=== PATIENT | female | born 1995 | race Caucasian/White ===

== ENCOUNTER → 2023-10-21 08:44 | Outpatient (CLI) | payer OTHER, SELFPAY ==
[2023-10-21 09:21] LABS: Add Manual Diff / Slide Review NO; Basophils Absolute Auto 100 /uL (0-100); Basophils Percent Auto 0.6 % (0-2); Eosinophils Absolute Auto 100 /uL (0-450); Eosinophils Percent Auto 1.1 % (2-4); Hematocrit 41.3 % (36-46); Lymphocytes Absolute Auto 2300 /uL (1100-4500); Lymphocytes Percent Auto 24.5 % (25-40); Mean Corpuscular HGB Conc 33.8 % (30-36); Mean Corpuscular Hemoglobin 30.1 PG (26-34); Monocytes Absolute Auto 500 /uL (0-900); Monocytes Percent Auto 5.6 % (3-14); Neutrophils Absolute Auto 6500 /uL (1500-7000); Neutrophils Percent Auto 68.2 % (50-75); Platelet Count 286 X10^3/uL (150-400); Red Blood Cell Count 4.64 X10^6/uL (4.0-5.2); Red Cell Distribution Width 13.1 % (11.6-14.8); White Blood Cell Count 9.5 X10^3/uL (4.5-11.0)
[2023-10-21 09:29] LABS: Hemoglobin A1C% w Est Avg Glu 5.6 % (4.0-6.0)
[2023-10-21 09:38] LABS: Alanine Aminotransferase 62 IU/L (<35); Albumin 4.5 g/dL (3.5-5.0); Albumin Globulin Ratio 1.2 (1.0-2.8); Alkaline Phosphatase 85 U/L (38-126); Aspartate Aminotransferase 39 IU/L (14-36); BUN Creatinine Ratio 18.3 (6-22); Bilirubin Total 0.6 mg/dL (0.2-1.3); Blood Urea Nitrogen 13 mg/dL (7-17); Calcium 9.7 mg/dL (8.4-10.2); Carbon Dioxide 27 mmol/L (22-32); Chloride 102 mmol/L (98-107); Estimated Glomerular Filt Rate > 60 mL/min (>60); Globulin 3.8 g/dL (1.7-4.1); Glucose 102 mg/dL (70-100); HEMOLYSIS < 15 (0-50); Potassium 4.7 mmol/L (3.4-5.1); Sodium 136 mmol/L (137-145); Total Protein 8.3 g/dL (6.3-8.2)
[2023-10-21 09:56] LABS: Vitamin D 25 Hydroxy (D3) 28.1 ng/mL (30.0-100.0)
[2023-10-21 10:41] LABS: Free T4, Direct Thyroxine 0.84 ng/dL (0.78-2.19)
== END ==
PROVIDERS: PCP Student in an Organized Health Care Education/Training Program; Referring Provider Student in an Organized Health Care Education/Training Program; Visit Provider Student in an Organized Health Care Education/Training Program
DX: Z13.1 Encounter for screening for diabetes mellitus (principal); E03.9 Hypothyroidism, unspecified
CPT/HCPCS: 36415; 80053; 82306; 83036; 84439; 84443; 85025

== ENCOUNTER → 2024-05-21 11:13 | Outpatient (CLI) | payer OTHER, SELFPAY ==
[2024-05-21 12:05] LABS: Hemoglobin A1C% w Est Avg Glu 5.4 % (4.0-6.0)
[2024-05-21 12:26] LABS: Vitamin D 25 Hydroxy (D3) 27.3 ng/mL (30.0-100.0)
== END ==
PROVIDERS: PCP Student in an Organized Health Care Education/Training Program; Referring Provider Student in an Organized Health Care Education/Training Program; Visit Provider Student in an Organized Health Care Education/Training Program
DX: E28.2 Polycystic ovarian syndrome (principal); E03.9 Hypothyroidism, unspecified; L64.9 Androgenic alopecia, unspecified
CPT/HCPCS: 36415; 82306; 83036; 84443

== ENCOUNTER → 2024-05-27 16:20 | Outpatient (CLI) | payer OTHER, SELFPAY ==
[2024-05-27 17:25] LABS: Add Manual Diff / Slide Review NO; Basophils Absolute Auto 0 /uL (0-100); Basophils Percent Auto 0.3 % (0-2); Eosinophils Absolute Auto 100 /uL (0-450); Eosinophils Percent Auto 1.1 % (2-4); Hematocrit 40.3 % (36-46); Hemoglobin 13.6 g/dL (12.0-16.0); Lymphocytes Absolute Auto 2900 /uL (1100-4500); Lymphocytes Percent Auto 30.5 % (25-40); Mean Corpuscular HGB Conc 33.8 % (30-36); Mean Corpuscular Hemoglobin 30.3 PG (26-34); Mean Corpuscular Volume 89.6 fL (80-100); Monocytes Absolute Auto 700 /uL (0-900); Monocytes Percent Auto 7.2 % (3-14); Neutrophils Absolute Auto 5800 /uL (1500-7000); Neutrophils Percent Auto 60.9 % (50-75); Platelet Count 328 X10^3/uL (150-400); Red Cell Distribution Width 13.2 % (11.6-14.8); White Blood Cell Count 9.5 X10^3/uL (4.5-11.0)
[2024-05-27 17:33] LABS: Appearance Urine UA CLEAR; Bilirubin Urine UA NEGATIVE (NEGATIVE); Color Urine UA YELLOW; Glucose Urine UA NEGATIVE (Negative); Ketones Urine UA NEGATIVE (NEGATIVE); Leukocyte Esterase Urine UA TRACE (NEGATIVE); Nitrite Urine UA NEGATIVE (Negative); Occult Blood Urine UA NEGATIVE (Negative); Protein Urine UA NEGATIVE (Negative); Specific Gravity Urine UA 1.015 (1.000-1.035); Urobilinogen Urine UA 0.2 E.U./dL (0.2)
[2024-05-27 17:41] LABS: Bacteria Urine Occasional (0-1); Culture Indicated Urine Cult Not Indicated; RBC Urine 0-1/HPF (0-5/HPF); Squamous Epithelial Cell Urine 0-1 /HPF (0-5/HPF); Urine Volume 10mL (spun); WBC Urine 0-1/HPF (0-5/HPF)
[2024-05-27 17:51] LABS: HEMOLYSIS < 15 (0-50); Iron 79 ug/dL (37-170)
[2024-05-27 17:55] LABS: Alanine Aminotransferase 73 IU/L (<35); Albumin 4.3 g/dL (3.5-5.0); Albumin Globulin Ratio 1.2 (1.0-2.8); Alkaline Phosphatase 89 U/L (38-126); Aspartate Aminotransferase 41 IU/L (14-36); BUN Creatinine Ratio 14.5 (6-22); Bilirubin Total 0.5 mg/dL (0.2-1.3); Blood Urea Nitrogen 11 mg/dL (7-17); Calcium 9.1 mg/dL (8.4-10.2); Carbon Dioxide 27 mmol/L (22-32); Chloride 101 mmol/L (98-107); Estimated Glomerular Filt Rate > 60 mL/min (>60); Globulin 3.7 g/dL (1.7-4.1); Glucose 84 mg/dL (70-100); HEMOLYSIS < 15 (0-50); Potassium 4.2 mmol/L (3.4-5.1); Sodium 135 mmol/L (137-145)
[2024-05-27 18:05] LABS: Percent Iron Saturation 26 % (15-50); Total Iron Binding Capacity 301 ug/dL (265-497); Transferrin 236 mg/dL (206-381)
[2024-05-27 18:30] LABS: Ferritin 86 ng/mL (6-137)
== END ==
PROVIDERS: PCP Student in an Organized Health Care Education/Training Program; Referring Provider Student in an Organized Health Care Education/Training Program; Visit Provider Student in an Organized Health Care Education/Training Program
DX: R53.83 Other fatigue (principal); R82.90 Unspecified abnormal findings in urine; F41.9 Anxiety disorder, unspecified
CPT/HCPCS: 36415; 80053; 81001; 82728; 83540; 83550; 85025

== ENCOUNTER → 2024-06-07 08:26 | Outpatient (CLI) | payer OTHER, SELFPAY ==
--- NOTE | 2024-06-07 08:27 | DI.US.S_ITS ---
PROCEDURE: US PELVIC COMPLETE INDICATIONS: DYSPAREUNIA. DIFFICULTY WITH CONCEPTION. TECHNIQUE: Real-time scanning was performed of the pelvic organs, with image documentation. Additional endovaginal scanning was necessary due to incomplete visualization of the adnexal and endometrial structures by transabdominal scanning. COMPARISON: None. FINDINGS: Uterus: Uterus is anteverted and normal in size at 8.3 x 4.6 x 3.6 cm. The myometrium is homogeneous. The endometrium measures 8 mm combined thickness. Nabothian cysts are present at the cervix. Additional small cysts are present at lower uterine segment. Ovaries: The right ovary measures 5.1 x 3.8 x 3.6 cm, with a calculated ovarian volume of 36.5 cc. The left ovary measures 3.6 x 2.3 x 1.3 cm, with a calculated ovarian volume of 5.6 cc. The ovaries have a normal sonographic appearance. Greater than 20 follicles are present in the right ovary. Greater than 16 follicles are present in the left ovary. In the right ovary, there is a septated 3.8 x 1.6 x 2.4 cm bilobed anechoic cyst with posterior acoustic enhancement. No adnexal masses are seen. Other: No pathologic free abdominal or pelvic fluid. IMPRESSION: 1. Greater than 12 follicles in the ovaries, which can be seen in the setting of polycystic ovarian morphology. 2. Minimally complex 3.8 cm right ovarian cyst without internal nodularity. Follow-up pelvic ultrasound in 8-12 weeks recommended. We strive to produce accurate, complete, and clear reports of imaging services. To assist us in improving patient care, this report was composed using standard report templates and voice recognition software. Therefore, it may contain abnormal punctuation, insertions and/or omissions. Occasional wrong-word or sound-alike substitutions may occur. Though we review the report and make efforts to correct it, we do recommend that the report be read carefully in proper context to recognize any text inaccuracies. Dictated by: Jass Orlando M.D. on 06/07/2024 at 13:18 Approved by: Jass Orlando M.D. on 06/07/2024 at 13:30
== END ==
PROVIDERS: PCP Student in an Organized Health Care Education/Training Program; Referring Provider Student in an Organized Health Care Education/Training Program; Visit Provider Student in an Organized Health Care Education/Training Program
DX: N92.6 Irregular menstruation, unspecified (principal); N93.9 Abnormal uterine and vaginal bleeding, unspecified; N83.201 Unspecified ovarian cyst, right side; R10.2 Pelvic and perineal pain
CPT/HCPCS: 76830; 76856

== ENCOUNTER 2025-05-26 14:55 | Emergency (ER) | payer OTHER, SELFPAY ==
[2025-05-26 15:27] VITALS: BP 145/87; PULSE 80; RESP 20; TEMP 37; O2SAT 99; BMI 34.4
--- NOTE | 2025-05-26 15:27 | DI.CT.S_ITS ---
PROCEDURE: CT ABDOMEN PELVIS W CON INDICATIONS: abd pain TECHNIQUE: After the administration of intravenous contrast, axial sections acquired from the lung bases to the pubic symphysis. Coronal and sagittal reformats were performed. For radiation dose reduction, the following was used: automated exposure control, adjustment of mA and/or kV according to patient size. COMPARISON: [facility], , PELVIC COMPLETE, 05/25/2025, 7:34. FINDINGS: Image quality: Diagnostic. Lower Chest: No significant findings. ABDOMEN: Liver: No solid mass. Moderate hepatic steatosis. Gallbladder: No radiopaque gallstones or wall thickening. Biliary ducts: No biliary dilation. Pancreas: No ductal dilation. Spleen: Size is within normal limits. Adrenal Glands: No adrenal nodules. Kidneys and Ureters: No hydronephrosis. No solid mass. No complex renal cystic lesion which requires follow up. Stomach and Bowel: Normal colonic caliber, without significant wall thickening. Normal appendix. No abscess collection. Peritoneum: No abnormal intraperitoneal fluid. No free air. Ventral Wall: No significant ventral hernia. Abdominal Nodes: No retroperitoneal or mesenteric adenopathy by size criteria. Vessels: Aorta and inferior vena cava are normal in size. PELVIS: Pelvic Organs: Simple appearing left ovarian cyst measures 3.7 x 3.2 cm in size better evaluated on recent pelvic ultrasound study. Bladder: No bladder wall thickening, accounting for underdistention. Pelvic Nodes: No enlarged lymph nodes. Miscellaneous: No inguinal hernias are seen. Bones: No aggressive osseous abnormality. IMPRESSION: 1. Normal appendix. No bowel obstruction or abnormal bowel wall thickening. No free fluid or free air. 2. Moderate hepatic steatosis. Normal appearing gallbladder. No biliary ductal dilatation. 3. Simple appearing left ovarian cyst better evaluated on pelvic ultrasound from previous day. Dictated by: Giorgi Patel M.D. on 05/26/2025 at 17:32 Approved by: Giorgi Patel M.D. on 05/26/2025 at 17:34
[2025-05-26 15:48] LABS: Add Manual Diff / Slide Review NO; Hematocrit 40.9 % (36-46); Hemoglobin 14.1 g/dL (12.0-16.0); Lymphocytes Absolute Auto 2400 /uL (1100-4500); Mean Corpuscular HGB Conc 34.5 % (30-36); Mean Corpuscular Hemoglobin 30.8 PG (26-34); Mean Corpuscular Volume 89.5 fL (80-100); Platelet Count 302 X10^3/uL (150-400)
[2025-05-26 16:01] LABS: Alanine Aminotransferase 49 IU/L (<35); Albumin 4.5 g/dL (3.5-5.0); Albumin Globulin Ratio 1.2 (1.0-2.8); Alkaline Phosphatase 77 U/L (38-126); Blood Urea Nitrogen 11 mg/dL (7-17); Calcium 9.5 mg/dL (8.4-10.2); Carbon Dioxide 26 mmol/L (22-32); Chloride 104 mmol/L (98-107); Estimated Glomerular Filt Rate > 60 mL/min (>60); Globulin 3.8 g/dL (1.7-4.1); Glucose 91 mg/dL (70-99); HEMOLYSIS < 15 (0-50); Lipase 93 U/L (23-300); Potassium 4.1 mmol/L (3.4-5.1); Sodium 138 mmol/L (137-145); Total Protein 8.3 g/dL (6.3-8.2)
[2025-05-26 16:54] LABS: Culture Indicated Urine Specimen Cultured
--- NOTE | 2025-05-26 17:43 | ED_ITS ---
HPI - Abdominal Pain <FLORECITA Yeung - Last Filed: 05/26/25 19:13> General Chief Complaint: Abdominal Pain Stated Complaint: abd pain sharp pain right side Time Seen by Provider: 05/26/25 14:57 Source: patient Mode of arrival: Ambulatory History of Present Illness HPI narrative: 29-year-old female, currently on a GLP 1, presents to the emergency department with persistent and worsening epigastric pain over the last 45 days. Patient has been evaluated by her family doctor, placed on multiple stomach acid reducing medications, ultrasound of gallbladder and basic labs, but without a diagnosis or definitive treatment. Patient endorses that pain worsens with palpation of her epigastric region, deep breathing, lying flat, etc.. Patient states that the pain radiates from her epigastric to her middle back, and occasionally radiate laterally. Patient states that today is the 1st time she has been experiencing pain during the day, and typically has the pain while lying flat at nighttime. Patient has leftover? pain medication at home that will help alleviate her pain for a short period of time. Related Data Home Medications ?Medication ?Instructions ?Recorded ?Confirmed multivitamin with iron (Daily 1 tab PO DAILY 01/01/24 02/10/25 Vitamin with Iron tablet) Previous Rx's ?Medication ?Instructions ?Recorded venlafaxine 37.5 mg 37.5 mg PO DAILY #30 caps capsule,extended release 24 hr spironolactone 100 mg tablet 100 mg PO DAILY #90 tabs 08/22/24 medroxyprogesterone 10 mg tablet 10 mg PO DAILY #10 ta bs 08/25/24 semaglutide 1 mg/dose (4 mg/3 mL) 1 mg (0.75 mL) SUBCU T QWEEK #6 mL 02/15/25 subcutaneous pen injector metformin 500 mg tablet 500 mg PO BID #180 tabs 02/19 03/15 levothyroxine 125 mcg tablet 125 mcg PO DAILY #90 tabs 04/10/25 sucralfate 100 mg/mL oral 10 ml PO QID Epigastric 02/12 suspension (Carafate) discomfort. 4 weeks #1,000 m L Allergies Allergy/AdvReac Type Severity Reaction Status Date / Time No Known Drug Allergies Allergy Verified 05/26/25 15:32 Review of Systems <FLORECITA Yeung - Last Filed: 05/26/25 19:13> Review of Systems Narrative: Narrative: See HPI. GENERAL: Denies chills, fatigue, fever, sweats. HEENT: Denies sinus pain, ear pain, sore throat, difficulty swallowing, dizziness. RESPIRATORY: Denies dyspnea, cough, wheezing, sputum. CARDIOVASCULAR: Denies chest pain, palpitations, edema. GASTROINTESTINAL: Denies nausea, vomiting, diarrhea, constipation. Endorses abdominal pain. : Denies dysuria, frequency, incontinence, hematuria, urinary retention, flank pain. MSK: Denies weakness, joint pain, or bony pain. SKIN: Denies rash, skin lesions, or pruritis. NEUROLOGIC: Denies weakness, dizziness, headache, numbness, confusion. PSYCHIATRIC: No concerning psychosocial issues. Patient History <FLORECITA Yeung - Last Filed: 05/26/25 19:13> Medical History Depression (~2018) Ovarian cyst (~2017) Irregular menstrual cycle (~2017) Anxiety (~2018) Surgical History Anesthesia History of mandibular surgery (~2011) Family History Father Diabetes mellitus Hypertension Mental health problem Mother Graves disease Thyroid eye disease Sister Mental health problem Celiac disease Social History Smoking Status: Never smoker Smoking Status: Never smoker Exam <FLORECITA Yeung - Last Filed: 05/26/25 19:13> Narrative Exam Narrative: Exam Narrative: GENERAL: This is a well-nourished, well-developed patient, in no acute distress. HEAD: Atraumatic. Normocephalic. EYES: Pupils equal round and reactive. Extraocular motions intact. No scleral icterus, injection or drainage. ENT: Nose without bleeding, purulent drainage. Airway patent. CARDIOVASCULAR: Regular rate and rhythm without murmurs, peripheral pulses intact, cap refill <2 sec. RESPIRATORY: Breath sounds equal and clear bilaterally. No wheezes, rales, or rhonchi. No cough. No increased respiratory effort. No accessory muscle use. GASTROINTESTINAL: Abdomen soft, mild tenderness of epigastrium, nondistended without guarding or rebound. No suprapubic pain. No CVA tenderness. MSK: Moves all extremities. Normal range of motion, no clubbing or edema. Neurovascularly intact. NEURO: A&O x 3. SKIN: Warm, dry, no rashes or lesions noted. Initial Vital Signs Initial Vital Signs: Vital Signs Temperature 98.6 F 05/26/25 15:27 Pulse Rate 80 05/26/25 15:27 Respiratory Rate 20 05/26/25 15:27 Blood Pressure 145/87 H 05/26/25 15:27 Pulse Oximetry 99 05/26/25 15:27 Oxygen Delivery Method Room Air 05/26/25 15:27 Review <DO Paul Knight Last Filed: 05/27/25 04:13> Initial Vital Signs Initial Vital Signs: Vital Signs Temperature 98.6 F 05/26/25 15:27 Pulse Rate 80 05/26/25 15:27 Respiratory Rate 20 05/26/25 15:27 Blood Pressure 145/87 H 05/26/25 15:27 Pulse Oximetry 99 05/26/25 15:27 Oxygen Delivery Method Room Air 05/26/25 15:27 Course <FLORECITA Yeung - Last Filed: 05/26/25 19:13> Orders Ordered: Discontinued Medications Hydromorphone HCl (Hydromorphone 1 Mg/Ml Syringe) 1 mg IV NOW ONE Stop: 05/26/25 17:45 Last Admin: 05/26/25 17:49 Dose: 1 mg Documented By: CARLOS Ondansetron HCl (Ondansetron 4 Mg/2 Ml Inj) 4 mg IV NOW PRN PRN Reason: Nausea And Vomiting Ondansetron HCl (Ondansetron 4 Mg Odt) 4 mg PO NOW PRN PRN Reason: Nausea And Vomiting Vital Signs Vital signs: Vital Signs - 8 hr 05/26/25 15:27 Temperature 98.6 F Pulse Rate 80 Respiratory Rate 20 Blood Pressure 145/87 H Pulse Oximetry 99 Oxygen Delivery Method Room Air <Irina Patrick DO - Last Filed: 05/27/25 04:13> Orders Ordered: Discontinued Medications Hydromorphone HCl (Hydromorphone 1 Mg/Ml Syringe) 1 mg IV NOW ONE Stop: 05/26/25 17:45 Last Admin: 05/26/25 17:49 Dose: 1 mg Documented By: CARLOS Ondansetron HCl (Ondansetron 4 Mg/2 Ml Inj) 4 mg IV NOW PRN PRN Reason: Nausea And Vomiting Ondansetron HCl (Ondansetron 4 Mg Odt) 4 mg PO NOW PRN PRN Reason: Nausea And Vomiting Vital Signs Vital signs: Vital Signs - 8 hr 05/26/25 15:27 Temperature 98.6 F Pulse Rate 80 Respiratory Rate 20 Blood Pressure 145/87 H Pulse Oximetry 99 Oxygen Delivery Method Room Air MDM - Abdominal Pain <FLORECITA Yeung - Last Filed: 05/26/25 19:13> Differential Diagnosis Differential diagnosis: Likely abdominal pain and other (Adverse reaction to GLP 1) Lab Data 05/26/25 15:40 05/26/25 15:40 Labs: Lab Results 05/26/25 05/26/25 Range/Units 15:40 16:20 WBC 8.2 (4.5-11.0) X10^3/uL RBC 4.58 (4.0-5.2) X10^6/uL Hgb 14.1 (12.0-16.0) g/dL Hct 40.9 (36-46) % MCV 89.5 (80-100) fL MCH 30.8 (26-34) PG MCHC 34.5 (30-36) % RDW 13.0 (11.6-14.8) % Plt Count 302 (150-400) X10^3/uL Neut % (Auto) 62.4 (50-75) % Lymph % (Auto) 29.5 (25-40) % [place] % (Auto) 6.5 (3-14) % Eos % (Auto) 1.1 L (2-4) % Baso % (Auto) 0.5 (0-2) % Neut # (Auto) 5100 (0874-5341) /uL Lymph # (Auto) 2400 (1569-9917) /uL [place] # (Auto) 500 (0-900) /uL Eos # (Auto) 100 (0-450) /uL Baso # (Auto) 0 (0-100) /uL Sodium 138 (137-145) mmol/L Potassium 4.1 (3.4-5.1) mmol/L Chloride 104 (98-107) mmol/L Carbon Dioxide 26 (22-32) mmol/L BUN 11 (7-17) mg/dL Creatinine 0.80 (0.52-1.04) mg/dL Estimated GFR > 60 (>60) mL/min BUN/Creatinine Ratio 13.8 (6-22) Glucose 91 (70-99) mg/dL Calcium 9.5 (8.4-10.2) mg/dL Total Bilirubin 0.4 (0.2-1.3) mg/dL AST 33 (14-36) IU/L ALT 49 H (<35) IU/L Alkaline Phosphatase 77 (38-126) U/L Total Protein 8.3 H (6.3-8.2) g/dL Albumin 4.5 (3.5-5.0) g/dL Globulin 3.8 (1.7-4.1) g/dL Albumin/Globulin Ratio 1.2 (1.0-2.8) Lipase 93 (23-300) U/L Urine RBC 0-1/hpf (0-5/HPF) Urine WBC 0-1/hpf (0-5/HPF) Ur Squamous Epith Cells 1-5 /hpf (0-5/HPF) Urine Bacteria Occasional (0-1) (None) Ur Culture Indicated? Specimen cultured Vol Urine Centrifuged 10ml (spun) Point of care testing: Point of Care Testing Test Results Negative Urine Dip Bedside Urine Glucose Negative Bedside Urine Bilirubin - Negative Bedside Urine Ketone - Negative Urine Specific [place] 1.015 Bedside Urine Occult Blood - Negative Bedside Urine pH 6.0 Bedside Urine Protein - Negative Bedside Urine Urobilinogen - Negative Bedside Urine Nitrite - Negative Bedside Urine Leukocytes + [address] scan - abdomen/pelvis: Radiologist's Impression: [place] [address] CT Scan Report Signed Patient: Serenity Keita MR#: [id number] : 1995 Acct:[id number] Age/Sex: 29 / F Date of Service: 05/26/25 Loc: ED Accession Number: [id number] Procedure: CT abdomen pelvis w con Ordering Provider: Silvio Tomlinson D.O. PROCEDURE: CT ABDOMEN PELVIS W CON INDICATIONS: abd pain TECHNIQUE: After the administration of intravenous contrast, axial sections acquired from the lung bases to the pubic symphysis. Coronal and sagittal reformats were performed. For radiation dose reduction, the following was used: automated exposure control, adjustment of mA and/or kV according to patient size. COMPARISON: [facility], , US PELVIC COMPLETE, 05/25/2025, 7:34. FINDINGS: Image quality: Diagnostic. Lower Chest: No significant findings. ABDOMEN: Liver: No solid mass. Moderate hepatic steatosis. Gallbladder: No radiopaque gallstones or wall thickening. Biliary ducts: No biliary dilation. Pancreas: No ductal dilation. Spleen: Size is within normal limits. Adrenal Glands: No adrenal nodules. Kidneys and Ureters: No hydronephrosis. No solid mass. No complex renal cystic lesion which requires follow up. Stomach and Bowel: Normal colonic caliber, without significant wall thickening. Normal appendix. No abscess collection. Peritoneum: No abnormal intraperitoneal fluid. No free air. Ventral Wall: No significant ventral hernia. Abdominal Nodes: No retroperitoneal or mesenteric adenopathy by size criteria. Vessels: Aorta and inferior vena cava are normal in size. PELVIS: Pelvic Organs: Simple appearing left ovarian cyst measures 3.7 x 3.2 cm in size better evaluated on recent pelvic ultrasound study. Bladder: No bladder wall thickening, accounting for underdistention. Pelvic Nodes: No enlarged lymph nodes. Miscellaneous: No inguinal hernias are seen. Bones: No aggressive osseous abnormality. IMPRESSION: 1. Normal appendix. No bowel obstruction or abnormal bowel wall thickening. No free fluid or free air. 2. Moderate hepatic steatosis. Normal appearing gallbladder. No biliary ductal dilatation. 3. Simple appearing left ovarian cyst better evaluated on pelvic ultrasound from previous day. Dictated by: Giorgi Patel M.D. on 05/26/2025 at 17:32 Approved by: Giorgi Patel M.D. on 05/26/2025 at 17:34 Chest x-ray: Radiologist's Impression: [address] [address] XRay Report Signed Patient: Serenity Keita MR#: [id number] : 1995 Acct:[id number] Age/Sex: 29 / F Date of Service: 05/26/25 Loc: ED Accession Number: [id number] Procedure: XR chest 2V Ordering Provider: Edvin Graham PROCEDURE: XR CHEST 2V INDICATIONS: Epigastric pain radiating to back TECHNIQUE: 2 views of the chest were acquired. COMPARISON: None. FINDINGS: Surgical changes and devices: None. Lungs and pleura: Lungs are clear. No pleural effusions or pneumothorax. Mediastinum: Mediastinal contours are normal. Heart size is normal. Bones and chest wall: No suspicious bony abnormalities. Soft tissues appear unremarkable. IMPRESSION: No acute cardiopulmonary abnormalities or focal consolidation. Dictated by: Delon Kincaid M.D. on 05/26/2025 at 18:53 Approved by: Delon Kincaid M.D. on 05/26/2025 at 18:53 ECG Data Attestation: I personally reviewed and interpreted this ECG as follows: Interpretation: NSR with vent rate of 70 bpm. CAITLIN 172 ms MDM Narrative Medical decision making narrative: 29-year-old female with abdominal pain radiating to middle back x 45 days. Clinical findings did not reveal any red flag symptoms. Abdominal CT did not reveal anything dangerous. Chest x-ray was normal. Labs were non concerning. EKG with normal rate and rhythm and without ectopy - NSR. 1 mg of Dilaudid provided and resulted in improved abdominal pain. Discussed case with Dr. Patrick. Will offer a prescription for Carafate. Recommended patient follow up with family doctor for possible GI consult and/or EGD. Discussed plan of care and return precautions with patient, who verbalized understanding and was agreeable with course of action. <Irina Patrick, DO - Last Filed: 05/27/25 04:13> Lab Data Labs: Lab Results 05/26/25 05/26/25 Range/Units 15:40 16:20 WBC 8.2 (4.5-11.0) X10^3/uL RBC 4.58 (4.0-5.2) X10^6/uL Hgb 14.1 (12.0-16.0) g/dL Hct 40.9 (36-46) % MCV 89.5 (80-100) fL MCH 30.8 (26-34) PG MCHC 34.5 (30-36) % RDW 13.0 (11.6-14.8) % Plt Count 302 (150-400) X10^3/uL Neut % (Auto) 62.4 (50-75) % Lymph % (Auto) 29.5 (25-40) % [place] % (Auto) 6.5 (3-14) % Eos % (Auto) 1.1 L (2-4) % Baso % (Auto) 0.5 (0-2) % Neut # (Auto) 5100 (2269-3477) /uL Lymph # (Auto) 2400 (4657-3765) /uL [place] # (Auto) 500 (0-900) /uL Eos # (Auto) 100 (0-450) /uL Baso # (Auto) 0 (0-100) /uL Sodium 138 (137-145) mmol/L Potassium 4.1 (3.4-5.1) mmol/L Chloride 104 (98-107) mmol/L Carbon Dioxide 26 (22-32) mmol/L BUN 11 (7-17) mg/dL Creatinine 0.80 (0.52-1.04) mg/dL Estimated GFR > 60 (>60) mL/min BUN/Creatinine Ratio 13.8 (6-22) Glucose 91 (70-99) mg/dL Calcium 9.5 (8.4-10.2) mg/dL Total Bilirubin 0.4 (0.2-1.3) mg/dL AST 33 (14-36) IU/L ALT 49 H (<35) IU/L Alkaline Phosphatase 77 (38-126) U/L Total Protein 8.3 H (6.3-8.2) g/dL Albumin 4.5 (3.5-5.0) g/dL Globulin 3.8 (1.7-4.1) g/dL Albumin/Globulin Ratio 1.2 (1.0-2.8) Lipase 93 (23-300) U/L Urine RBC 0-1/hpf (0-5/HPF) Urine WBC 0-1/hpf (0-5/HPF) Ur Squamous Epith Cells 1-5 /hpf (0-5/HPF) Urine Bacteria Occasional (0-1) (None) Ur Culture Indicated? Specimen cultured Vol Urine Centrifuged 10ml (spun) Point of care testing: Point of Care Testing Test Results Negative Urine Dip Bedside Urine Glucose Negative Bedside Urine Bilirubin - Negative Bedside Urine Ketone - Negative Urine Specific [place] 1.015 Bedside Urine Occult Blood - Negative Bedside Urine pH 6.0 Bedside Urine Protein - Negative Bedside Urine Urobilinogen - Negative Bedside Urine Nitrite - Negative Bedside Urine Leukocytes + 70 Esterase Discharge Plan Departure Patient Disposition: Home Clinical Impression: Abdominal pain Qualifiers: Abdominal location: epigastric Qualified Code(s): R10.13 - Epigastric pain Instructions: DI for Abdominal Pain-Adult Activity Restrictions/Additional Instructions: *You have been diagnosed with abdominal pain. I am sorry that you are going through this but all of our testing has been encouraging. Your chest x-ray, EKG and abdominal CT were all negative. Your labs were non concerning. Review of your doctor's notes show that you should be starting on Pepcid, in case that helps. I strongly recommend you follow up with your family doctor as a referral for GI sounds reasonable. *What to do: *Please continue to take your regular medications as directed. [x ] New medication prescriptions sent to your pharmacy: [[facility]] [ ] New medication written as a paper prescription [ ] No new medications given *Please follow up with your primary care provider in 2-3 days, call for an appointment. Let them know you were seen in the Emergency Department and that we ask that you be seen in follow up. We will electronically transmit a record of today's note if your PCP is in our system *If you do not have a primary care provider please contact the [facility] Resource line at [phone]. They will ask some questions about your medical history and help get you set up with a doctor in the community. ? Return to ER if you should have any new, worsening or concerning symptoms, such as worsening pain, severe headache, confusion, chest pain, difficulty breathing, fever greater than 101 F, shaking chills, persistent vomiting to the point that you cannot drink fluids, or other new or worsening symptoms. Prescriptions: New sucralfate [Carafate] 100 mg/mL suspension 10 ml PO QID 28 Days Qty: 1000 0RF Rx Instructions: swish in mouth and swallow; use after food/drink No Action multivitamin with iron [Daily Vitamin with Iron] Tablet 1 tab PO DAILY venlafaxine 37.5 mg capsule,extended release 24hr 37.5 mg PO DAILY Qty: 30 3RF spironolactone 100 mg tablet 100 mg PO DAILY Qty: 90 3RF medroxyprogesterone 10 mg tablet 10 mg PO DAILY Qty: 10 0RF Rx Instructions: Take for 10 days to induce bleeding. semaglutide 1 mg/dose (4 mg/3 mL) pen injector 1 mg SUBCUT QWEEK Qty: 6 3RF metformin 500 mg tablet 500 mg PO BID Qty: 180 1RF levothyroxine 125 mcg tablet 125 mcg PO DAILY Qty: 90 0RF Referrals: Vy Lamb MD [Primary Care Provider, Family Practice] Stand Alone Forms: Patient Portal/API ED Sign-out <Irina Patrick, - Last Filed: 05/27/25 04:13> Cosign ED Attending Cosdanitzaature Attestation: I was immediately available in the department for consultation.
--- NOTE | 2025-05-26 18:39 | EKG_ITS ---
[address] [address] Test Date: 2025-05-26 Pat Name: Serenity Keita Department: [facility] Room: Gender: Female [employer] Loan Underwriter: FRANTZ ENCINAS : 1995 Requested By: Order Number: [id number] Reading MD: Cornell Goyal Measurements Intervals [place] Rate: 70 P: -13 GA: 172 QRS: 15 QRSD: 90 T: 9 QT: 412 QTc: 444 Interpretive Statements Normal sinus rhythm Possible Inferior infarct , age undetermined Electronically Signed On 05-29-2025 16:53:00 PDT by Cornell Goyal
[2025-05-26 19:22] VITALS: BP 114/72; PULSE 76; RESP 14; O2SAT 100
== END 2025-05-26 19:24 | disposition home or self-care (01) ==
PROVIDERS: Family Medicine; Emergency Provider Registered Nurse; PCP Student in an Organized Health Care Education/Training Program
DX: R10.13 Epigastric pain (principal)
CPT/HCPCS: 36415; 71046; 74177; 80053; 81003; 81015; 81025; 83690; 85025; 87086; 93005; 96374; 99284; J1171; Q9967

== ENCOUNTER → 2025-09-05 14:51 | Outpatient (CLI) | payer OTHER, SELFPAY ==
--- NOTE | 2025-09-05 14:52 | DI.US.S_ITS ---
PROCEDURE: US PELVIC COMPLETE INDICATIONS: re-evaluate ovarian cysts from May 2025 TECHNIQUE: Real-time scanning was performed of the pelvic organs, with image documentation. Additional endovaginal scanning was necessary due to incomplete visualization of the adnexal and endometrial structures by transabdominal scanning. COMPARISON: [facility], US, US PELVIC COMPLETE, 05/25/2025, 7:34. FINDINGS: Uterus: Uterus is anteverted and normal in size at 8.2 x 4.4 x 3.5 cm. The myometrium is homogeneous. The endometrium measures 6 mm combined thickness. There is a focus of decreased echogenicity within the endometrium measuring 2 mm. Ovaries: The right ovary measures 3.3 x 2.1 x 2.4 cm, with a calculated ovarian volume of 8.8 cc. The left ovary measures 3.8 x 1.9 x 1.3 cm, with a calculated ovarian volume of 5 cc. The ovaries have a normal sonographic appearance. Less than 12 follicles can be seen in each ovary. No adnexal masses are seen. Other: No pathologic free abdominal or pelvic fluid. Right vaginal wall cyst measuring 2.9 x 2.8 x 1.6 cm compared to 2.6 x 2.7 x 1.6 cm. Left vaginal wall cyst measuring 1.2 x 1.4 x 1.2 cm compared to 1.2 x 1.3 x 1.2 cm. IMPRESSION: Hypoechoic focus within the endometrium too small to definitively characterize. Small gestational sac which would correspond to 4 weeks 6 days cannot be definitively excluded. Recommend correlation to beta HCG levels and short interval imaging follow-up as indicated. Persistent presence of vaginal cysts with slight interval increase in size on the right. We strive to produce accurate, complete, and clear reports of imaging services. To assist us in improving patient care, this report was composed using standard report templates and voice recognition software. Therefore, it may contain abnormal punctuation, insertions and/or omissions. Occasional wrong-word or sound-alike substitutions may occur. Though we review the report and make efforts to correct it, we do recommend that the report be read carefully in proper context to recognize any text inaccuracies. Dictated by: Giana Caballero M.D. on 09/06/2025 at 10:17 Approved by: Giana Caballero M.D. on 09/06/2025 at 10:20
== END ==
PROVIDERS: PCP Student in an Organized Health Care Education/Training Program; Referring Provider Student in an Organized Health Care Education/Training Program; Visit Provider Student in an Organized Health Care Education/Training Program
DX: N89.8 Other specified noninflammatory disorders of vagina (principal); N83.209 Unspecified ovarian cyst, unspecified side
CPT/HCPCS: 76830; 76856

== ENCOUNTER → 2025-09-06 13:35 | Outpatient (CLI) | payer OTHER, SELFPAY ==
[2025-09-06 15:12] LABS: HCG Quantitative /Beta subunit < 2.39 mIU/mL
== END ==
PROVIDERS: PCP Student in an Organized Health Care Education/Training Program; Referring Provider Obstetrics & Gynecology; Visit Provider Obstetrics & Gynecology
DX: R93.89 Abnormal findings on diagnostic imaging of other specified body structures (principal)
CPT/HCPCS: 36415; 84702